=== PATIENT | female | born 1975 | race Caucasian/White ===

== ENCOUNTER → 2017-08-08 | Outpatient (REF) ==
--- NOTE | 2017-08-08 16:16 | RADIOLOGY IMAGING REPORT ---
FACILITY: [facility] - [place] PATIENT NAME: Deidre Prado : 1975 MR: [id number] V: [id number] EXAM DATE: ORDERING PHYSICIAN: RAJANI PAYNE TECHNOLOGIST: Location: [facility] Patient: Deidre Prado : 1975 Visit/Account:[id number] Date of Sevice: 08/08/2017 PELVIC HISTORY: History of left lower quadrant pain TECHNIQUE: There has been satisfactory transvaginal and transabdominal ultrasonic evaluation of the p cata. 3-D images are available for interpretation as well. COMPARISON: None. FINDINGS: Uterus: Anteverted; it measures: 9.2 cm length x 4.0 cm AP x 7.0 cm transverse. Myometrium: In the lower uterine segment there is a small hypoechoic 9 mm nodule posteriorly. This c ould represent a small intramural fibroid. No additional fibroids are seen.. Endometrium: Unremarkable; endometrial thickness 3.7 mm. Cervix: Grossly negative. Ovaries: Right - right ovary measures 5.4 x 3.7 x 4.6 cm in size. It contains a 3.9 x 4.1 cm anechoic re gion that likely represents a persistent luteal cyst. Left - ovary measures 3.6 x 2.7 x 4.0 cm in size. It contains multiple follicular cysts. Blood flow is documented in each ovary by duplex Doppler ultrasound. Adnexa: Grossly unremarkable. Free pelvic fluid: None. Bladder: The bladder is decompressed for transvaginal imaging. During transabdominal imaging it is u nremarkable. IMPRESSION: 1. Small fibroid in the lower uterine segment posteriorly. 2. Enlargement of the right ovary is predominantly related to a large anechoic structure that likely represents a persistent luteal cyst. It measures 3.9 x 4.1 cm in size. 3. Normal-appearing left ovary. Report Dictated By: Mk Busby MD at 08/08/2017 3:45 PM Report E-Signed By: Mk Busby MD at 08/08/2017 4:12 PM WSN:[email or web address]
== END ==
LOC: US 00:47
PROVIDERS: ATTEND Nurse Practitioner
DX: D25.9 Leiomyoma of uterus, unspecified (principal); N83.8 Other noninflammatory disorders of ovary, fallopian tube and broad ligament
CPT/HCPCS: 76856

== ENCOUNTER → 2017-10-04 | Outpatient (REF) ==
--- NOTE | 2017-10-04 14:30 | EKG ---
FACILITY: [facility] PATIENT NAME: PATRICIA LYONS : [id number] MR: [id number] V: [id number] EXAM DATE: ORDERING PHYSICIAN: RAJANI PAYNE TECHNOLOGIST: VENITA Reyes Reason : CP Blood Pressure : / mmHG Vent. Rate : 071 BPM Atrial Rate : 071 BPM P-R Int : 122 ms QRS Dur : 084 ms QT Int : 394 ms P-R-T Axes : 058 065 057 degrees QTc Int : 428 ms Normal sinus rhythm No previous ECGs available Confirmed by JADEN APONTE ([id number]) on 10/04/2017 7:43:46 PM Referred By: ELMER Confirmed By:JADEN APONTE
== END ==
LOC: RESP 14:16
PROVIDERS: ATTEND Nurse Practitioner
DX: R07.9 Chest pain, unspecified (principal)
CPT/HCPCS: 93005

== ENCOUNTER → 2018-04-02 | Outpatient (REF) ==
[~2018-04-02] MED LIST: IBUP400T13 PO; IOPAMIDOL 76% 75 ML INFUS BTL 75 ML ONE; METH-543 PO; PER PO
--- NOTE | 2018-04-02 16:08 | RADIOLOGY IMAGING REPORT ---
FACILITY: [facility] - [place] PATIENT NAME: Deidre Dunlap : 1975 MR: [id number] V: [id number] EXAM DATE: ORDERING PHYSICIAN: CHIKA BELL TECHNOLOGIST: [place] [facility] [place]idre [place] : 1975 Visit/Account:[id number] Date of Sevice: 04/02/2018 ABDOMEN/PELVIS WITH CONTRAST HISTORY: Abdominal pain right upper right lower quadrants TECHNIQUE: Following administration of IV contrast contiguous axial images acquired through the abdom en/pelvis. Coronal and sagittal reformatting also performed. Dose Lowering Technique One of the following dose optimization techniques was utilized in the performance of this exam: Autom ated exposure control; adjustment of the mA and/or kV according to the patient's size; or use of an i terative reconstruction technique. Specific details can be referenced in the facility's radiology C T exam operational policy. CONTRAST: 75 mL [id number] COMPARISON: Pelvic ultrasound August 08, 2017 FINDINGS: Visualized lung bases: Negative. Hepatobiliary: There are postsurgical changes from a cholecystectomy. Common bile duct is dilated u p to 8 mm. The intrahepatic biliary tree is not dilated. This may simply be related to postsurgical changes however if biliary obstruction is of clinical concern MRCP may be helpful There is a 5 mm ro und hypoattenuating lesion in the dome of the liver which may represent a cyst although is too small to characterize by CT Spleen: Negative. Adrenals: Negative. Pancreas: Negative. Kidneys ureters or bladder: Subcentimeter cortical hypodensity lower pole of the left kidney likely r epresents a cyst although is too small to characterize accurately by CT. Of the renal collecting sys tems are mildly prominent although likely related to the moderately distended urinary bladder Genitalia: There are two right ovarian cysts, one measuring 4 cm in diameter and one measuring 3.1 c m GI: The appendix is visualized and does not appear inflamed. There is no evidence of bowel wall thi ckening or bowel obstruction. There is a small hiatal hernia with thickening of the distal esophagus Vessels/spaces/nodes: Negative Bones/soft tissues: There is a small umbilical hernia containing fat. There is a right inguinal her isela containing fat There is a large disc protrusion with what appears to be a calcified disc fragment projecting into th e ventral aspect of the spinal canal at L4-5 producing marked mass effect on the thecal sac Additional findings: None pertinent. IMPRESSION: There are postsurgical changes from a cholecystectomy. The common bile duct is dilated up to 8 mm wh ich could be related to postoperative change however if biliary obstruction is of clinical concern MR CP may be helpful. The renal collecting systems are mildly prominent although this is likely related to the moderately d istended urinary bladder There are two right ovarian cysts, one measuring 4 cm in diameter one measuring 3.1 cm The appendix is visualized does not appear inflamed This a small hiatal hernia with thickening of the distal esophagus. This could be related to gastroe sophageal reflux disease although clinical correlation needed Small umbilical hernia containing fat and small right inguinal hernia containing fat Large central disc protrusion with what appears to be a calcified disc fragment projecting into the v entral aspect of spinal canal at L4-5 producing marked mass effect on the thecal sac. This could be further evaluated with MR Report Dictated By: Mago Stanton MD at 04/02/2018 3:51 PM Report E-Signed By: Mago Stanton MD at 04/02/2018 4:04 PM WSN:[email or web address]
== END ==
LOC: CT 00:34
PROVIDERS: ATTEND Family Medicine
DX: N83.201 Unspecified ovarian cyst, right side (principal); K44.9 Diaphragmatic hernia without obstruction or gangrene; K42.9 Umbilical hernia without obstruction or gangrene; Z90.49 Acquired absence of other specified parts of digestive tract
CPT/HCPCS: 74177; Q9967